=== PATIENT | female | born 1940 | race Caucasian/White ===

== ENCOUNTER 2022-10-27 13:31 | Outpatient (CLI) | payer MEDICARE, SELFPAY ==
--- NOTE | ~2022-10-27 | US_ITS ---
EXAMINATION: US venous doppler [facility] DATE: 10/27/2022 14:26 INDICATION: Left lower limb swelling. TECHNIQUE: Grayscale ultrasound images without and with compression and Doppler ultrasound images of the left lower extremity veins were obtained. COMPARISON: None. FINDINGS: The visualized portions of left common femoral vein, profunda (deep) femoral vein, femoral vein, popl iteal vein, peroneal veins, and greater saphenous vein outflow are patent. There is thrombus in the l eft posterior tibial veins. IMPRESSION: 1. Deep vein thrombosis involving the left posterior tibial veins. I called this result to Dr. Romero . Reviewed, dictated and finalized at location A. K SUPERVISOR IMPRESSION: 1. Deep vein thrombosis involving the left posterior tibial veins. I called th is result to Dr. Romero.
== END 2022-10-27 13:32 | disposition home or self-care (01) ==
PROVIDERS: PCP Family Medicine; Visit Provider Podiatrist Foot & Ankle Surgery
DX: M79.89 Other specified soft tissue disorders (principal); I82.442 Acute embolism and thrombosis of left tibial vein
CPT/HCPCS: 93971